=== PATIENT | male | born 1960 | race African-American/Black ===

== ENCOUNTER 2025-06-04 09:20 | Inpatient (IN) | payer OTHER ==
[~2025-06-04] VITALS: Ht 177.8 cm; Wt 112.2 kg
[~2025-06-04 09:20] MED LIST: ALPR0.255 PO; ATOR10TA52 PO; CITA10TA5 PO; EMPA1TAB3 PO; ERGO1CAP12 PO; FURO40TA4 PO; HYDR50TA47 PO; LOSA-535 PO; METO-289 PO; POTA-220 PO; SACU1TAB7 PO; SILD100T73 PO
--- NOTE | 2025-06-04 09:35 | ED.PDOC ---
History of Present Illness HPI Comments 65-year-old male with PMHx HTN, Asthma, CHF brought in by EMS presents with a chief complaint of sciatica pain x 3 weeks with associated hypertension. 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 Patient is also hypertensive at 190 systolic, but states that he just recently took his blood pressure medication. Chief Complaint: Lower Extremity Time Seen by MD: 09:25 Reviewed Notes: Medications, Allergies Allergies: Coded Allergies: NO KNOWN ALLERGIES (Unverified , 06/04/25) Information Source: Patient Mode of Arrival: Ambulatory Severity: Moderate Timing: Days Duration: Since onset Prehospital treatment: [facility] Past Medical History PAST MEDICAL HISTORY: Asthma, CHF, HTN Surgical History: Denies all surgeries Family History Family History: Reviewed,noncontributory to illness Social History Smoker: Non-Smoker Alcohol: Denies ETOH Use Drugs: Denies Drug Use Lives In: Home Constitutional: denies: chills, diaphoresis, fatigue, fever, malaise, sweats, weakness, others EENTM: denies: blurred vision, double vision, ear bleeding, ear discharge, ear drainage, ear pain, ear ringing, eye pain, eye redness, hearing loss, mouth pain, mouth swelling, nasal discharge, nose bleeding, nose congestion, nose pain, photophobia, tearing, throat pain, throat swelling, voice changes, others Respiratory: denies: cough, hemoptysis, orthopnea, SOB at rest, shortness of breath, SOB with excertion, stridor, wheezing, others Cardiovascular: denies: chest pain, dizzy spells, diaphoresis, Dyspnea on exertion, edema, irregular heart beat, left arm pain, lightheadedness, palpitations, PND, syncope, others Gastrointestinal: denies: abdomen distended, abdominal pain, blood streaked bowels, constipated, diarrhea, dysphagia, difficulty swallowing, hematemesis, melena, nausea, poor appetite, poor fluid intake, rectal bleeding, rectal pain, vomiting, others Genitourinary: denies: burning, dysuria, flank pain, frequency, hematuria, incontinence, penile discharge, penile sore, pain, testicle pain, testicle swelling, urgency, others Neurological: denies: dizziness, fainting, headache, left sided numbness, left sided weakness, numbness, paresthesia, pre-existing deficit, right sided numbn ess, right sided weakness, seizure, speech problems, tingling, tremors, weakness, others Musculoskeletal: reports: muscle pain; denies: back pain, gout, joint pain, joint swelling, muscle stiffness, neck pain, others Integumetry: denies: bruises, change in color, change in hair/nails, dryness, laceration, lesions, lumps, rash, wounds, others Allergic/Immunocompromised: denies: Difficulty Healing, Frequent Infections, Hives, Itching, others Hematologic/Lymphatic: denies: anemia, blood clots, easy bleeding, easy bruising, swollen glands, others Endocrine: denies: excessive hunger, excessive sweating, excessive thirst, excessive urination, flushing, intolerance to cold, intolerance to heat, unexplained weight gain, unexplained weight loss, others Psychiatric: denies: anxiety, bipolar disorder, depression, hopeless, panic disorder, schizophrenia, sleepless, suicidal, others All Other Systems: Reviewed and Negative Physical Exam General Appearance: Moderate Distress, Normal HEENT: Normal ENT Inspection, Pharynx Normal, TMs Normal Neck: Full Range of Motion, Non-Tender, Normal, Normal Inspection Respiratory: Chest Non-Tender, Lungs Clear, No Accessory Muscle Use, No Respiratory Distress, Normal Breath Sounds Cardiovascular: No Edema, No JVD, No Murmur, No Gallop, Normal Peripheral Pulses, Regular Rate/Rhythm Breast Exam: Deferred Gastrointestinal: No Organomegaly, Non Tender, No Pulsatile Mass, Normal Bowel Sounds, Soft Genitalia: Deferred Pelvic: Deferred Rectal: Deferred Extremities: No calf tenderness, Normal capillary refill, Normal inspection, Normal range of motion, Non-tender, No pedal edema Musculoskeletal : Apperance: Normal Neurologic: Alert, quality analyst II-XII nml as Tested, No Motor Deficits, Normal Affect, Normal Mood, No Sensory Deficits Cerebellar Function: NOT DONE Reflexes: NOT DONE Skin: Dry, Normal Color, Warm Peripheral Pulses: 3+ Radial (R), 3+ Radial (L) Lymphatic: No Adenopathy Was a procedure done? Was a procedure done?: No Differential Dx Considerations may include: Anemia Electrolyte imbalance X-Ray, Labs, Meds, VS Vital Signs Date Time Temp Pulse Resp B/P (MAP) Pulse Ox O2 Delivery O2 Flow Rate FiO2 9/21/25 09:57 87 18 95 Room Air 06/04/25 09:57 98.9 87 18 194/112 (139) 95 98.9 06/04/25 09:54 194/112 06/04/25 09:32 80 06/04/25 09:30 99.0 86 18 196/78 100 99.0 Current Medications Medications (Trade) Dose Ordered Sig/Alma Route Start Time Stop Time Status Last Admin Clonidine HCl (Catapres Tablet) 0.2 mg ONCE ONCE PO 06/04/25 09:30 06/04/25 09:32 DC 06/04/25 09:54 Patient complaining of leg pain. Blood pressure elevated. Was given clonidine. Answering questions. Moving all extremities. No leg swelling. Chest x-ray reviewed does show CHF. Was given Lasix. EKG reviewed does show T-wave inversions. Cardiology contacted. Explained to the patient. Continue monitoring. Time of 1ST Reevaluation: 10:34 Reevaluation 1ST: Unchanged Patient Education/Counseling: Diagnosis, Treatment, Need For Follow Up Family Education/Counseling: No Family Present SEPSIS Sepsis Screen Physician Orders Troponin-I Hs (06/04/25 09:30) Complete Blood Count (06/04/25 09:30) Chest Portable (06/04/25 09:30) Urinalysis (06/04/25 09:30) Basic Metabolic Panel (06/04/25 09:30) Vital Signs Date Time Temp Pulse Resp B/P (MAP) Pulse Ox O2 Delivery O2 Flow Rate FiO2 06/04/25 09:57 87 18 95 Room Air 06/04/25 09:57 98.9 87 18 194/112 (139) 95 98.9 06/04/25 09:54 194/112 06/04/25 09:32 80 06/04/25 09:30 99.0 86 18 196/78 100 99.0 Medications Medications Dose Ordered Sig/Alma Route Start Time Stop Time Status Last Admin Dose Admin Clonidine HCl 0.2 mg ONCE ONCE PO 06/04/25 09:30 06/04/25 09:32 DC 06/04/25 09:54 Departure 1 Departure Time of Disposition: 10:35 Impression: Primary Impression: CHF (congestive heart failure) Qualified Codes: I50.43 - Acute on chronic combined systolic (congestive) and diastolic (congestive) heart failure Disposition: 09 ADMITTED INPATIENT Admit to: Med Surg Condition: Guarded Critical Care Note Critical Care Time?: No Stability Stability form required: No Heart Score Heart Score: Heart Score Response (Comments) Value History Slightly Suspicious 0 EKG Normal 0 Age >65 2 Risk Factors >3 or Hx ASHD 2 Troponin Normal limit 0 Total 4 I personally scribed for MONIQUE HART MD ([email or web address]) on 06/04/25 at 09:35. Electronically submitted by Keith Simpson [email or web address]). MONIQUE HART MD Jun 04, 2025 09:35
--- NOTE | 2025-06-04 09:39 | ECG ---
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
--- NOTE | 2025-06-04 10:00 | DVH ---
INDICATION: sob TECHNIQUE: Frontal view of the chest. COMPARISON: None FINDINGS: Heart size is mildly enlarged. There also appears to be mild increased interstitial and alveolar mar kings bilaterally. IMPRESSION: 1. Mild cardiomegaly with mild pulmonary edema.
[2025-06-04] MEDS: ONDANSETRON HCL 4 MG/2 ML VIAL IV ONE (11:27)
[2025-06-04] MEDS: FUROSEMIDE 40 MG/4 ML VIAL IV ONE (11:27)
[2025-06-04] MEDS: MORPHINE SULFATE 4 MG/ML SYR/VIAL IV ONE (11:28)
[2025-06-04 12:07] LABS: Hemoglobin 18.1 g/dL (13.5-17.5); Mean Corpuscular Hemoglobin 27.2 pg (28.0-32.0)
[2025-06-04 12:09] LABS: Mean Corpuscular Volume 84.6 fL (80.0-100.0); Nucleated Red Blood Cells % 0.1 %
[2025-06-04 12:25] LABS: Chloride 105 mmol/L (98-107); Potassium 3.8 mmol/L (3.5-5.1); Sodium 140 mmol/L (136-145)
[2025-06-04 12:26] LABS: Anion Gap 11 (5-15); Calcium 9.6 mg/dL (8.7-10.4); Carbon Dioxide 24 mmol/L (20-31)
[2025-06-04] MEDS ORDERED: ACETAMINOPHEN 325 MG TAB PO PRN (12:30)
[2025-06-04] MEDS ORDERED: NITROGLYCERIN 0.4 MG SL TAB SL PRN (12:30)
[2025-06-04] MEDS ORDERED: HYDROcodone-ACET 5/325MG TAB PO PRN (12:30)
[2025-06-04 12:31] LABS: BUN/Creatinine Ratio 8.2 (10.0-20.0)
[2025-06-04 12:34] LABS: Blood Urea Nitrogen 7 mg/dL (9-23); Glucose 108 mg/dL (74-106)
[2025-06-04 12:36] LABS: Hematocrit 56.2 % (41.0-53.0)
[2025-06-04 13:08] LABS: INR 1.08 (0.9-1.15); Prothrombin Time 11.4 sec (9.3-11.8)
--- NOTE | 2025-06-04 14:02 | DVHHP2 ---
History of Present Illness Reason for Visit: Generalized weakness likely due to acute lumbar pain History of Present Illness This is a 65-year-old male with PMHx HTN, Asthma, CHF brought in by EMS presents with a chief complaint of sciatica pain x 3 weeks with associated numbness and tingling down his left leg. 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 The patient states that prior to this incident he was ambulatory, currently he is in severe pain after standing for no more than 10 minutes. The patient reports that his symptoms progressively got worse since Thursday. It was also noted that his blood pressure was found to be elevated at 194/112 despite taking his antihypertensive medications. Upon evaluation the patient was found to be alert oriented x4 denied pain to his chest but lower back pain rated it 8/10 on pain scale one through 10. He is concerned about his symptoms and would like to be further evaluated and treated. The patient will be admitted under hospitalist care to the telemetry unit for continuous monitoring. The patient denies fever, chills, headache, dizziness, palpitations, shortness of breath, chest pain, nausea, vomiting, abdominal pain, diarrhea, constipation and other associated symptoms. The plan has been discussed with the patient and spouse in which all questions concerns have been addressed. Cardiovascular: CHF, HTN Pulmonary: Asthma Past Surgical History: None Family History: None Smoke: No ALCOHOL: none Drugs: None Lives: with Family Domestic Violence: Neg Review of Systems Musculoskeletal: other (Numbness and tingling down left leg), back pain, leg pain Allergies: Coded Allergies: NO KNOWN ALLERGIES (Unverified , 06/04/25) Medications Current Medications Medications Dose Ordered Sig/Alma Route Start Time Stop Time Status Last Admin Dose Admin Acetaminophen/ Hydrocodone Bitart 1 tab Q4HP PRN PO 06/04/25 12:30 Ondansetron HCl 4 mg Q4HP PRN IV 06/04/25 12:30 Enoxaparin Sodium 40 mg DAILY SC 06/05/25 10:00 Acetaminophen 650 mg Q6HP PRN PO 06/04/25 12:30 Morphine Sulfate 2 mg Q4HPRN PRN IV 06/04/25 12:30 Nitroglycerin 0.4 mg Q5MINP PRN SL 06/04/25 12:30 Morphine Sulfate 2 mg Q30M PRN IV 06/04/25 12:30 Hydralazine HCl 10 mg Q6HP PRN IV 06/04/25 12:30 Exam Vital Signs Vital Signs Date Time Temp Pulse Resp B/P (MAP) Pulse Ox O2 Delivery O2 Flow Rate FiO2 06/04/25 11:28 87 17 180/116 06/04/25 11:04 98.7 97 98.7 06/04/25 09:57 Room Air General Appearance: Alert, Oriented X3, Cooperative, No acute distress HEENT: Atraumatic, PERRLA, Mucous membr. moist/pink Respiratory: Clear to auscultation, Normal air movement Cardiovascular: Normal S1, Normal S2, No murmurs Abdominal: Normal bowel sounds, Soft, No tenderness, No hepatospenomegaly, No masses Extremities: No clubbing, No cyanosis, No edema, Normal pulses, No tenderness/swelling Skin: No rashes, No breakdown Neuro: Normal speech, Normal tone, Cranial nerves 3-12 NL Psych/Mental Status: Mental status NL, Mood NL Labs/Xrays Labs Test 06/04/25 11:48 06/04/25 11:44 06/04/25 09:30 Range/Units White Blood Count 7.5 4.4-10.8 10^3/uL Red Blood Count 6.65 H 4.5-5.90 10^6/uL Hemoglobin 18.1 H 13.5-17.5 g/dL Hematocrit 56.2 H 41.0-53.0 % Mean Corpuscular Volume 84.6 80.0-100.0 fL Mean Corpuscular Hemoglobin 27.2 L 28.0-32.0 pg Mean Corpuscular Hemoglobin Concent 32.2 32.0-36.0 g/dL Red Cell Distribution Width 16.8 H 11.8-14.3 % Platelet Count 335 140-450 10^3/uL Mean Platelet Volume 8.1 6.9-10.8 fL Neutrophils (%) (Auto) 72.7 37.0-80.0 % Lymphocytes (%) (Auto) 19.2 10.0-50.0 % Monocytes (%) (Auto) 6.9 0.0-12.0 % Eosinophils (%) (Auto) 0.6 0.0-7.0 % Basophils (%) (Auto) 0.6 0.0-2.0 % Neutrophils # (Auto) 5.5 1.6-8.6 10 ^3/uL Lymphocytes # (Auto) 1.4 0.4-5.4 10 ^3/uL Monocytes # (Auto) 0.5 0-1.3 10 ^3/uL Eosinophils # (Auto) 0 0-0.8 10 ^3/uL Basophils # (Auto) 0 0-0.2 10 ^3/uL Nucleated Red Blood Cells 0.1 % Sodium Level 140 136-145 mmol/L Potassium Level 3.8 3.5-5.1 mmol/L Chloride Level 105 98-107 mmol/L Carbon Dioxide Level 24 20-31 mmol/L Anion Gap 11 5-15 Blood Urea Nitrogen 7 L 9-23 mg/dL Creatinine 0.85 0.700-1.30 mg/dL Glomerular Filtration Rate Calc 96 >90 mL/min BUN/Creatinine Ratio 8.2 L 10.0-20.0 Serum Glucose 108 H 74-106 mg/dL Calcium Level 9.6 8.7-10.4 mg/dL Troponin I High Sensitivity 106 *H </=54 ng/L Prothrombin Time 11.4 9.3-11.8 sec Prothrombin Time INR 1.08 0.9-1.15 ORDERING PHYSICIAN: MONIQUE HART MD PROCEDURE(s): CXRP - CHEST PORTABLE REASON: sob ORDER NUMBER(s): [id number], ACCESSION NUMBER(s): [id number] INDICATION: sob TECHNIQUE: Frontal view of the chest. COMPARISON: None FINDINGS: Heart size is mildly enlarged. There also appears to be mild increased interstitial and alveolar markings bilaterally. IMPRESSION: 1. Mild cardiomegaly with mild pulmonary edema. ATED BY: BETTIE PEREZ MD DICTATED DATE/TIME: 06/04/25956 SIGNED BY: BETTIE PEREZ MD SIGNED DATE/TIME: 06/04/25956 ORDERING PHYSICIAN: BRIAN DUGGAN OCCUPATIONAL THERAPY INSTRUCTOR PROCEDURE(s): LS2CT - LS SPINE WO CONTRAST REASON: sciatica pain ORDER NUMBER(s): [id number], ACCESSION NUMBER(s): [id number] EXAM: CT LS SPINE WO CONTRAST INDICATION: sciatica pain COMPARISON: None TECHNIQUE: Multiple axial CT images of the lumbar spine were obtained using bone algorithm. Axial and coronal reformatting was done. Bone and soft tissue windows were reviewed. Radiation Dose Information: CT Dose: CTDI volume is 24.8 mGy. Dose-length product is 1044.69 mGy*cm FINDINGS: No CT evidence of acute fracture or traumatic mal-alignment. The visualized paraspinal soft tissues are grossly unremarkable. L1-2: The disc at this level appears normal. L2-3: There is a mild central disc bulge present at this level along with hypertrophy ligamentum flavum is causing [id number]-[id number] central canal stenosis. This is also causing nwbt-pk-qkvcrxla encroachment upon the exiting nerve roots bilaterally. L3-4 there is a mild central disc bulge at this level, this along with hypertrophied ligamentum flavum is causing moderate to high-grade central canal stenosis as well as encroachment upon the exiting nerves bilaterally. L4-5: There there appears to be a moderate left paracentral disc protrusion present at this level which is causing significant encroachment upon the exiting left nerve roots. There is moderate hypertrophied ligamentum flavum which is causing atzp-gy-upgsszao central canal stenosis. L5-S1: Mild to moderate central disc bulge is present at this level which is causing nbyh-zw-lcitsnwz central canal stenosis. IMPRESSION: 1. No CT evidence of acute fracture or traumatic mal-alignment of the bony lumbar spine. 2. Multilevel degenerative changes as described above. 3. Moderate left paracentral disc protrusion at L4-5 causing significant encroachment upon the exiting left nerve roots. ATED BY: BETTIE PEREZ MD DICTATED DATE/TIME: 06/04/251415 SIGNED BY: BETTIE PEREZ MD SIGNED DATE/TIME: 06/04/251415 CC: SEPSIS Sepsis Screen Date sepsis recognized/suspect: Jun 04, 2025 Time Sepsis recognized/suspect: 923 Recent Procedure: No On Antibiotic Therapy: No Respiratory Rate >20: No Heart Rate >90: No Temp<36 C (96.8 F) or >38.3 C: No SBP <90 or MAP <65 mmHG: No New Acute Mental Status Change: No Is the patient on CPAP, BIPAP,: No Physician Orders Chest Portable (06/04/25 09:30) Urinalysis (06/04/25 09:30) Admit (06/04/25 12:24) 2 Gm Sodium Diet (06/04/25 Lunch) Hydrocodone-Acet 5/325mg Tab ([place] 5/32 (06/04/25 12:30) Ondansetron Hcl (Zofran) (06/04/25 12:30) Enoxaparin Sodium (Lovenox) (06/05/25 10:00) Comprehensive Metabolic Panel (06/05/25 04:00) Echo 2d Mode Cardiac Dop (06/04/25 12:24) Condition: Fair (06/04/25 12:24) Acetaminophen Tablet (Tylenol Tablet) (06/04/25 12:30) Bedrest With Bathroom Privileg (06/04/25 12:24) Morphine Sulfate Injection (06/04/25 12:30) Nitroglycerin Sublingual (Ntrostat Subli (06/04/25 12:30) Morphine Sulfate Injection (06/04/25 12:30) Stat Ekg For Chest Pain (06/04/25 12:24) Notify Md Of Changes From Base (06/04/25 12:24) Weight Loss Sales Consultant For 24 Hours (06/04/25 12:24) Emergency Dysrhythmia Protocol (06/04/25 12:24) Rhythm Strips Once Every Shift (06/04/25 12:24) Oxygen By Nasal Cannula (06/04/25 12:24) Hydralazine Injection (Apresoline Inject (06/04/25 12:30) Ls Spine Wo Contrast (06/04/25 13:06) Vital Signs Date Time Temp Pulse Resp B/P (MAP) Pulse Ox O2 Delivery O2 Flow Rate FiO2 06/04/25 11:28 87 17 180/116 06/04/25 11:27 180/116 06/04/25 11:23 184/116 06/04/25 11:04 98.7 87 17 180/116 (137) 97 98.7 06/04/25 09:57 87 18 95 Room Air 06/04/25 09:57 98.9 87 18 194/112 (139) 95 98.9 06/04/25 09:54 194/112 06/04/25 09:32 80 06/04/25 09:30 99.0 86 18 196/78 100 99.0 Laboratory Tests Test 06/04/25 11:48 White Blood Count 7.5 10^3/uL (4.4-10.8) Medications Medications Dose Ordered Sig/Alma Route Start Time Stop Time Status Last Admin Dose Admin Clonidine HCl 0.2 mg ONCE ONCE PO 06/04/25 09:30 06/04/25 09:32 DC 06/04/25 09:54 0.2 MG Furosemide 40 mg ONCE ONCE IV 06/04/25 10:45 06/04/25 10:46 DC 06/04/25 11:27 40 MG Morphine Sulfate 4 mg ONCE ONCE IV 06/04/25 11:15 06/04/25 11:16 DC 06/04/25 11:28 4 MG Ondansetron HCl 4 mg ONCE ONCE IV 06/04/25 11:15 06/04/25 11:16 DC 06/04/25 11:27 4 MG Assessment/Plan Assessment/Plan Generalized weakness likely due to acute lumbar pain---patient presents to ED via EMS with progressive sciatica pain associated with numbness and tingling to his left leg since Thursday The patient had 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 when symptoms 1st started Patient was fully ambulatory prior to accident currently can not stand for more than 10 minutes, in a wheelchair No prior history of back issues History of asthma, CHF and hypertension-compliant on medications The patient was given 4 mg IV morphine sulfate for pain Admit to telemetry unit for continuous monitoring--due to elevated BP ACS protocol if needed Reviewed CBC shows elevated hemoglobin 18.1 Reviewed BMP which is normal Troponin level 106--patient denies chest pain or shortness of breath Reviewed chest x-ray shows mild cardiomegaly with edema PT/INR pending Type and screen Ordered CT lumbar spine with and without contrast---Moderate left paracentral disc protrusion at L4-5 causing significant encroachment upon the exiting left nerve roots. Consult spine surgeon Dr. Patterson for evaluation and recommendation PT eval [place] for pain as needed IV Toradol now for pain CHF BNP pending Echocardiogram pending Continue medications Hypertension-uncontrolled Hydralazine 10 mg IV push q.6 p.r.n. SBP greater than 160 mmHg Continue antihypertensive agent Continue to monitor Reconcile home medications Labs in a.m. DVT prophylaxis SCD PUD prophylaxis not indicated no history of GERD Discussed plan of care with the patient and spouse in which all questions concerns have been addressed Plan discussed with: Patient, Spouse My Orders Orders - BRIAN DUGGAN Procedure Category Date Status Time Admit ADMIT 06/04/25 Transmitted 12:24 2 Gm Sodium Diet DIET 06/04/25 Transmitted Lunch Hydrocodone-Acet PHA 06/04/25 In Process 5/325mg Tab ([place] 12:30 Ondansetron Hcl PHA 06/04/25 In Process (Zofran) 12:30 Enoxaparin Sodium PHA 06/05/25 In Process (Lovenox) 10:00 Comprehensive LAB 06/05/25 Verified Metabolic Panel 04:00 Echo 2d Mode Cardiac US 06/04/25 Logged DOP 12:24 Condition: Fair [place] 06/04/25 In Process 12:24 Acetaminophen Tablet PHA 06/04/25 In Process (Tylenol Tablet) 12:30 Bedrest With Bathroom [place] 06/04/25 In Process Privileg 12:24 Morphine Sulfate PHA 06/04/25 In Process Injection 12:30 Nitroglycerin PHA 06/04/25 In Process Sublingual (Ntrostat 12:30 Morphine Sulfate PHA 06/04/25 In Process Injection 12:30 Stat Ekg For Chest [place] 06/04/25 In Process Pain 12:24 Notify Md Of Changes [place] 06/04/25 In Process From Base 12:24 Weight Loss Sales Consultant For [place] 06/04/25 In Process 24 Hours 12:24 Emergency Dysrhythmia [place] 06/04/25 In Process Protocol 12:24 Rhythm Strips Once [place] 06/04/25 In Process Every Shift 12:24 Oxygen By Nasal RT 06/04/25 Transmitted Cannula 12:24 Hydralazine Injection PHA 06/04/25 In Process (Apresoline Inject 12:30 Ls Spine Wo Contrast CT 06/04/25 Taken 13:06 Date of Service: Jun 04, 2025 Billing Provider: BRIAN DUGGAN Common Visit Codes: [id number] INP/OBS CARE (HIGH) BRIAN DUGGAN Jun 04, 2025 14:02
--- NOTE | 2025-06-04 14:18 | DVH ---
EXAM: CT LS SPINE WO CONTRAST INDICATION: sciatica pain COMPARISON: None TECHNIQUE: Multiple axial CT images of the lumbar spine were obtained using bone algorithm. Axial an d coronal reformatting was done. Bone and soft tissue windows were reviewed. Radiation Dose Information: CT Dose: CTDI volume is 24.8 mGy. Dose-length product is 1044.69 mGy*cm FINDINGS: No CT evidence of acute fracture or traumatic mal-alignment. The visualized paraspinal soft tissues a re grossly unremarkable. L1-2: The disc at this level appears normal. L2-3: There is a mild central disc bulge present at this level along with hypertrophy ligamentum flav um is causing iwth-cn-nsxjfzqi central canal stenosis. This is also causing vfvd-gd-nzmzokyy encroach ment upon the exiting nerve roots bilaterally. L3-4 there is a mild central disc bulge at this level, this along with hypertrophied ligamentum flavu m is causing moderate to high-grade central canal stenosis as well as encroachment upon the exiting n erves bilaterally. L4-5: There there appears to be a moderate left paracentral disc protrusion present at this level whi ch is causing significant encroachment upon the exiting left nerve roots. There is moderate hypertrop hied ligamentum flavum which is causing nolh-xl-wdfctqhd central canal stenosis. L5-S1: Mild to moderate central disc bulge is present at this level which is causing ivzz-cs-nsqmhjug central canal stenosis. IMPRESSION: 1. No CT evidence of acute fracture or traumatic mal-alignment of the bony lumbar spine. 2. Multilevel degenerative changes as described above. 3. Moderate left paracentral disc protrusion at L4-5 causing significant encroachment upon the exitin g left nerve roots.
[2025-06-04] MEDS: KETOROLAC TROMETH 30 MG/ML 1ML VIAL IV ONE (14:22)
[2025-06-04 14:25] LABS: Urine Protein, UAD Negative (Negative)
[2025-06-04 17:10] VITALS: PULSE 88; RESP 19; O2SAT 94
[2025-06-04 19:25] VITALS: O2SAT 88
[2025-06-04] MEDS: hydrALAZINE HCL 20 MG/ML VL IV PRN (20:05)
[2025-06-04] MEDS: CYCLOBENZAPRINE HCL 10 MG TAB PO SCH (22:29)
[2025-06-04] MEDS: MORPHINE SULFATE INJ 2 MG/ml SYRG IV PRN (23:36)
[2025-06-04] MEDS: ONDANSETRON HCL 4 MG/2 ML VIAL IV PRN (23:36)
[2025-06-05] VITALS (9 sets, daily range): BP systolic 142–158; BP diastolic 77–90; PULSE 82–95; RESP 18–20; TEMP 98.2; O2SAT 93–100
[2025-06-05 06:36] LABS: Alanine Aminotransferase 32 U/L (7-40); Albumin 4.0 g/dL (3.2-4.8); Alkaline Phosphatase 61 U/L (46-116); Anion Gap 9 (5-15); BUN/Creatinine Ratio 11.2 (10.0-20.0); Blood Urea Nitrogen 10 mg/dL (9-23); Calcium 9.3 mg/dL (8.7-10.4); Carbon Dioxide 29 mmol/L (20-31); Chloride 104 mmol/L (98-107); Glucose 88 mg/dL (74-106); Potassium 3.9 mmol/L (3.5-5.1); Sodium 142 mmol/L (136-145); Total Protein 7.1 g/dL (5.7-8.2)
[2025-06-05 06:43] LABS: Bilirubin, Total 1.3 mg/dL (0.2-1.0)
[2025-06-05] MEDS: ENOXAPARIN SOD 40 MG/0.4 ML SYRINGE SC SCH (10:41)
--- NOTE | 2025-06-05 11:55 | DVH ---
PROCEDURE: MRI LUMBAR SPINE WO CONTRAST Indication: lumbar pain COMPARISON: None TECHNIQUE: Multiplanar multisequence images of the the lumbar spine are obtained. FINDINGS: For the purpose of this examination, there are 5 lumbar vertebral body types counting from the lumbos acral junction. The lumbar vertebral body heights are maintained. Moderate multilevel disc space narrowing and desicc ation. 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 The conus terminates at the level of the L1 vertebral body level. There is an L4 vertebral body T2 bright, T1 dark lesion measuring 12 mm. T12-L1: No spinal canal, neural foraminal stenosis. Mild bilateral neural foraminal stenosis. L1-2: No disc protrusion. Mild facet and flavum hypertrophy. No spinal canal stenosis. No neural f oraminal stenosis. L2-3: Tiny disc protrusion. Mild facet and flavum hypertrophy. Thecal sac measures 13 mm AP. No spi nal canal stenosis. Mild bilateral neural foraminal stenosis. L3-4: Small 2 mm disc protrusion. Mild facet and flavum hypertrophy. Thecal sac measures 9 mm AP. Mild spinal canal stenosis moderate neural foraminal stenosis. L4-5: 4 mm disc protrusion. Moderate facet and flavum hypertrophy. Thecal sac measures 6 mm AP. Mo derate spinal canal stenosis. Moderate to severe left and moderate right neural foraminal stenosis. L5-S1: 4 mm disc protrusion. Rwni-qu-zrcakldl facet and flavum hypertrophy. Thecal sac measures 11 m m AP. No spinal canal stenosis. Severe left and moderate to severe right neural foraminal stenosis. IMPRESSION: Moderate lumbar degenerative disc disease. 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 Moderate spinal canal stenosis L4-5. Mild spinal canal stenosis L3-4. Multilevel neural foraminal stenosis most pronounced at L4-5 and L5-S1. T2 bright, T1 dark lesion at the L4 vertebral body measuring 12 mm. Differential considerations incl ude atypical hemangioma, metastases, myeloma. Recommend MRI lumbar spine with contrast. Recommend c ontinued imaging surveillance. Correlate with risk factors/clinical history.
--- NOTE | 2025-06-05 13:22 | DVHPN2 ---
Reviewed: H&P Changes from previous H/P or p: No Changes General: Per HPI Musculoskeletal: other (Numbness and tingling down left leg), back pain, leg pain Objective Vitals Vital Signs Date Time Temp Pulse Resp B/P (MAP) Pulse Ox O2 Delivery O2 Flow Rate FiO2 06/05/25 10:00 80 14 168/88 (114) 95 06/05/25 07:15 Room Air* 0 21 06/05/25 07:15 97.9 97.9 Exam General Appearance: Alert, Oriented X3, Cooperative, No acute distress HEENT: Atraumatic, PERRLA, Mucous membr. moist/pink Respiratory: Clear to auscultation, Normal air movement Cardiovascular: Normal S1, Normal S2, No murmurs Abdominal: Normal bowel sounds, Soft, No tenderness, No hepatospenomegaly, No masses Extremities: No clubbing, No cyanosis, No edema, Normal pulses, No tenderness/swelling Skin: No rashes, No breakdown Neuro: Normal speech, Normal tone, Cranial nerves 3-12 NL Psych/Mental Status: Mental status NL, Mood NL Medications Current Medications Medications Dose Ordered Sig/Alma Route Start Time Stop Time Status Last Admin Dose Admin Acetaminophen/ Hydrocodone Bitart 1 tab Q4HP PRN PO 06/04/25 12:30 Ondansetron HCl 4 mg Q4HP PRN IV 06/04/25 12:30 06/04/25 23:36 4 MG Enoxaparin Sodium 40 mg DAILY SC 06/05/25 10:00 06/05/25 10:41 40 MG Acetaminophen 650 mg Q6HP PRN PO 06/04/25 12:30 Morphine Sulfate 2 mg Q4HPRN PRN IV 06/04/25 12:30 Nitroglycerin 0.4 mg Q5MINP PRN SL 06/04/25 12:30 Morphine Sulfate 2 mg Q30M PRN IV 06/04/25 12:30 06/04/25 23:36 2 MG Hydralazine HCl 10 mg Q6HP PRN IV 06/05/25 12:15 Methylprednisolone Sodium Succinate 40 mg DAILY IV 06/05/25 12:15 Baclofen 10 mg BID PO 06/05/25 12:15 Laboratory Results Laboratory Tests 06/04/25 11:48 06/05/25 05:50 Chemistry Test 06/05/25 05:50 Albumin 4.0 g/dL (3.2-4.8) Calcium Level 9.3 mg/dL (8.7-10.4) Total Protein 7.1 g/dL (5.7-8.2) LFT Test 06/05/25 05:50 Alanine Aminotransferase (ALT) 32 U/L (7-40) Alkaline Phosphatase 61 U/L (46-116) Aspartate Amino Transferase (AST) 43 U/L (13-40) H Total Bilirubin 1.3 mg/dL (0.2-1.0) H Urinalysis Test 06/04/25 09:30 Urine Color Light-yellow (Yellow) Urine Clarity Clear (Clear) Urine pH 6.5 (5.0-9.0) Urine Specific [place] 1.017 (1.001-1.035) Urine Protein Negative (Negative) Urine Ketones Negative (Negative) Urine Blood Negative /uL (Negative) Urine Nitrite Negative (Negative) Urine Bilirubin Negative (Negative) Urine Urobilinogen Normal mg/dL (Negative) Urine Leukocyte Esterase Negative /uL (Negative) Urine RBC 1 /hpf (0 - 3) Urine Microscopic WBC /HPF (0-3) Urine Squamous Epithelial Cells None seen /hpf (<5) Urine Bacteria None seen /hpf (None Seen) Urine Glucose 4+ mg/dL (Normal) H Labs and/or images reviewed: Labs reviewed by me, Image(s) reviewed by me Assessment/Plan Assessment/Plan 65-year-old male with PMHx HTN, Asthma, CHF brought in by EMS presents with a chief complaint of sciatica pain x 3 weeks with associated numbness and tingling down his left leg. 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 The patient states that prior to this incident he was ambulatory, currently he is in severe pain after standing for no more than 10 minutes. The patient reports that his symptoms progressively got worse since Thursday. It was also noted that his blood pressure was found to be elevated at 194/112 despite taking his antihypertensive medications. 06/05: Patient is today, continues having back pain. Straight leg raise negative, but has significant pain on changing angle of head of bed. Patient also has CPAP/BiPAP at home we will continue with the stay. We will also continue his CHF medications. Patient is unable to lie down flat because of CHF. We started Solu-Medrol 40 b.i.d. and baclofen 10 t.i.d.. Waiting for spinal team eval as consult placed team. dx: acute sciatica, with lower extremity neuropathy and falls acute lumbar pain due to above intractable back pain due to above chronic CHF, not in exacerbation Asthma HTN plan: antispamsmodics (baclofen over flexiril) pain prn analgesics, iv formulations for severe steroids iv - decadron (prior solumedrol) continue other home medications spinal consult tele full code Plan discussed with: Patient My Orders Orders - CHEVY JACOBSON MD Procedure Category Date Status Time Hydralazine Injection PHA 06/05/25 In Process (Apresoline Inject 12:15 Methylprednisolone PHA 06/05/25 In Process Sod Succ (Solu Medrol 12:15 Baclofen Tablet PHA 06/05/25 In Process (Liorisal Tablet) 12:15 Date of Service: Jun 05, 2025 Billing Provider: CHEVY JACOBSON MD Common Visit Codes: [id number] INP/OBS CARE(HIGH) CHEVY JACOBSON MD Jun 05, 2025 13:22
[2025-06-05] MEDS: methylPREDNISolone SOD SUCC 40 MG/ML VL IV SCH (13:28)
[2025-06-05] MEDS: BACLOFEN 10 MG TAB PO SCH (13:28)
--- NOTE | 2025-06-05 15:12 | DVHINCON2 ---
Consultation - Surgical Date Seen: Jun 05, 2025 Referring Physician Referring Physician Attending Doctor: Ginna Burton MD Reason for Consultation Reason for Visit: Generalized weakness likely due to acute lumbar pain History of Present Illness History of Present Illness History of Present Illness This is a 65-year-old male with PMHx HTN, Asthma, CHF brought in by EMS presents with a chief complaint of sciatica pain x 3 weeks with associated numbness and tingling down his left leg. 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 The patient states that prior to this incident he was ambulatory, currently he is in severe pain after standing for no more than 10 minutes. The patient reports that his symptoms progressively got worse since Thursday. It was also noted that his blood pressure was found to be elevated at 194/112 despite taking his antihypertensive medications. Upon evaluation the patient was found to be alert oriented x4 denied pain to his chest but lower ba ck pain rated it 8/10 on pain scale one through 10. He is concerned about his symptoms and would like to be further evaluated and treated. The patient will be admitted under hospitalist care to the telemetry unit for continuous monitoring. The patient denies fever, chills, headache, dizziness, palpitations, shortness of breath, chest pain, nausea, vomiting, abdominal pain, diarrhea, constipation and other associated symptoms. The plan has been discussed with the patient and spouse in which all questions concerns have been addressed. Past Medical/Surgical History Past Medical/Surgical History Cardiovascular: CHF, HTN Pulmonary: Asthma Past Surgical History: None Family and Social History Family and Social History Family History: None Smoke: No ALCOHOL: none Drugs: None Lives: with Family Domestic Violence: Neg Allergies and medications Allergies: Coded Allergies: NO KNOWN ALLERGIES (Unverified , 06/04/25) Home Meds Reported Medications Sacubitril-Valsartan (Entresto 49-51 mg) 1 Tab Tab, 1 TAB PO BID for 90 Days, #180 06/05/25 Ergocalciferol (Vitamin D) 50,000 Unit Cap, 1 CAP PO QWEEKLY for 84 Days, #12 06/05/25 Sildenafil Citrate (Sildenafil Citrate) 100 Mg Tab, 1 TAB PO PRN for 30 Days, # 30 06/05/25 Atorvastatin Calcium (ATORVASTATIN CALCIUM) 10 Mg Tab, 1 TAB PO DAILY for 30 Days, #30 06/05/25 Hydralazine Hcl (Hydralazine Hcl) 50 Mg Tab, 1 TAB PO BID for 30 Days, #60 06/05/25 Losartan Potassium (Losartan Potassium) 100 Mg Tab, 1 TAB PO DAILY for 30 Days, #30 06/05/25 Empagliflozin (Jardiance) 25 Mg Tab, 1 TAB PO QAM for 90 Days, #90 06/05/25 Potassium Chloride (Klor-Con M20) 20 Meq Tab, 1 TAB PO DAILY for 90 Days, #90 06/05/25 Citalopram Hydrobromide (Citalopram Hydrobromide) 10 Mg Tab, 1 TAB PO DAILY for 90 Days, #06/05/25 Alprazolam (Alprazolam) 0.25 Mg Tab, 1 TAB PO BID PRN for 30 Days, #60 06/05/25 Furosemide (Furosemide) 40 Mg Tab, 1 TAB PO DAILY for 90 Days, #06/05/25 Metoprolol Succinate (Metoprolol Succinate Er) 50 Mg Tab, 1 TAB PO DAILY for 90 Days, #90 06/05/25 Review of systems Review of Systems: MSK:Normal (sciatica pain x 3 weeks with associated numbness and tingling down his left leg, patient did trip on some wire just prior to the pain developing. 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 FINDINGS: For the purpose of this examination, there are 5 lumbar vertebral body types counting from the lumbosacral junction. The lumbar vertebral body heights are maintained. Moderate multilevel disc space narrowing and desiccation. 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 The conus terminates at the level of the L1 vertebral body level. There is an L4 vertebral body T2 bright, T1 dark lesion measuring 12 mm. T12-L1: No spinal canal, neural foraminal stenosis. Mild bilateral neural foraminal stenosis. L1-2: No disc protrusion. Mild facet and flavum hypertrophy. No spinal canal stenosis. No neural foraminal stenosis. L2-3: Tiny disc protrusion. Mild facet and flavum hypertrophy. Thecal sac measures 13 mm AP. No spinal canal stenosis. Mild bilateral neural foraminal stenosis. L3-4: Small 2 mm disc protrusion. Mild facet and flavum hypertrophy. Thecal sac measures 9 mm AP. Mild spinal canal stenosis moderate neural foraminal stenosis. L4-5: 4 mm disc protrusion. Moderate facet and flavum hypertrophy. Thecal sac measures 6 mm AP. Moderate spinal canal stenosis. Moderate to severe left and moderate right neural foraminal stenosis. L5-S1: 4 mm disc protrusion. [id number] facet and flavum hypertrophy. Thecal sac measures 11 mm AP. No spinal canal stenosis. Severe left and moderate to severe right neural foraminal stenosis. IMPRESSION: Moderate lumbar degenerative disc disease. 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 Moderate spinal canal stenosis L4-5. Mild spinal canal stenosis L3-4. Multilevel neural foraminal stenosis most pronounced at L4-5 and L5-S1. T2 bright, T1 dark lesion at the L4 vertebral body measuring 12 mm. Differential considerations include atypical hemangioma, metastases, myeloma. Recommend MRI lumbar spine with contrast. Recommend continued imaging surveillance. Correlate with risk factors/clinical history. Vital Signs Date Time Temp Pulse Resp B/P (MAP) Pulse Ox O2 Delivery O2 Flow Rate FiO2 06/05/25 14:00 86 13 140/78 (98) 91 06/05/25 07:15 Room Air* 0 21 06/05/25 07:15 97.9 97.9 Medications Current Medications Medications (Trade) Dose Ordered Sig/Alma Route PRN Reason Start Time Stop Time Status Last Admin Enoxaparin Sodium (Lovenox) 40 mg DAILY SC 06/05/25 10:00 06/05/25 10:41 Cyclobenzaprine HCl (Flexeril Tablet) 10 mg TID PO 06/04/25 22:00 06/05/25 12:03 DC 06/05/25 07:32 Hydralazine HCl (Apresoline Injection) 10 mg Q6HP PRN IV SBP>170 06/05/25 12:15 Methylprednisolone Sodium Succinate (Solu Medrol) 40 mg DAILY IV 06/05/25 12:15 06/05/25 13:28 Baclofen (Liorisal Tablet) 10 mg BID PO 06/05/25 12:15 06/05/25 13:28 Laboratory Labs Test 06/05/25 05:50 06/04/25 21:35 06/04/25 11:48 06/04/25 11:44 Range/Units Sodium Level 142 136-145 mmol/L Potassium Level 3.9 3.5-5.1 mmol/L Chloride Level 104 98-107 mmol/L Carbon Dioxide Level 29 20-31 mmol/L Anion Gap 9 5-15 Blood Urea Nitrogen 10 9-23 mg/dL Creatinine 0.89 0.700-1.30 mg/dL Glomerular Filtration Rate Calc 95 >90 mL/min BUN/Creatinine Ratio 11.2 10.0-20.0 Serum Glucose 88 74-106 mg/dL Calcium Level 9.3 8.7-10.4 mg/dL Total Bilirubin 1.3 H 0.2-1.0 mg/dL Aspartate Amino Transferase (AST) 43 H 13-40 U/L Alanine Aminotransferase (ALT) 32 7-40 U/L Alkaline Phosphatase 61 46-116 U/L Total Protein 7.1 5.7-8.2 g/dL Albumin 4.0 3.2-4.8 g/dL Troponin I High Sensitivity 84 *H </=54 ng/L White Blood Count 7.5 4.4-10.8 10^3/uL Red Blood Count 6.65 H 4.5-5.90 10^6/uL Hemoglobin 18.1 H 13.5-17.5 g/dL Hematocrit 56.2 H 41.0-53.0 % Mean Corpuscular Volume 84.6 80.0-100.0 fL Mean Corpuscular Hemoglobin 27.2 L 28.0-32.0 pg Mean Corpuscular Hemoglobin Concent 32.2 32.0-36.0 g/dL Red Cell Distribution Width 16.8 H 11.8-14.3 % Platelet Count 335 140-450 10^3/uL Mean Platelet Volume 8.1 6.9-10.8 fL Neutrophils (%) (Auto) 72.7 37.0-80.0 % Lymphocytes (%) (Auto) 19.2 10.0-50.0 % Monocytes (%) (Auto) 6.9 0.0-12.0 % Eosinophils (%) (Auto) 0.6 0.0-7.0 % Basophils (%) (Auto) 0.6 0.0-2.0 % Neutrophils # (Auto) 5.5 1.6-8.6 10 ^3/uL Lymphocytes # (Auto) 1.4 0.4-5.4 10 ^3/uL Monocytes # (Auto) 0.5 0-1.3 10 ^3/uL Eosinophils # (Auto) 0 0-0.8 10 ^3/uL Basophils # (Auto) 0 0-0.2 10 ^3/uL Nucleated Red Blood Cells 0.1 % Prothrombin Time 11.4 9.3-11.8 sec Prothrombin Time INR 1.08 0.9-1.15 Test 06/04/25 09:30 Range/Units Urine Color Light-yellow Yellow Urine Clarity Clear Clear Urine pH 6.5 5.0-9.0 Urine Specific [place] 1.017 1.001-1.035 Urine Protein Negative Negative Urine Ketones Negative Negative Urine Blood Negative Negative /uL Urine Nitrite Negative Negative Urine Bilirubin Negative Negative Urine Urobilinogen Normal Negative mg/dL Urine Leukocyte Esterase Negative Negative /uL Urine RBC 1 0 - 3 /hpf Urine Microscopic WBC 0-3 /HPF Urine Squamous Epithelial Cells None seen <5 /hpf Urine Bacteria None seen None Seen /hpf Urine Glucose 4+ H Normal mg/dL Examination: MSK:Normal (5 OF OUT OF 5 TO BILATERAL LOWER EXTREMITIES), SKIN:Normal, NEURO:Abnormal (NUMBNESS AND SHOOTING PAIN TO THE LEFT LEG), :Normal Problem List/Assessment/Plan Problems: (1) Lumbar stenosis with neurogenic claudication (2) Spondyloarthropathy of lumbar spine Assessment and Plan Moderate lumbar degenerative disc disease. congenitally narrow spinal canal at approximately L3 through L5. Moderate spinal canal stenosis L4-5. Mild spinal canal stenosis L3-4. Multilevel neural foraminal stenosis most pronounced at L4-5 and L5-S1. Continue care and support per admitting team's discretion Physical therapy evaluation, treatment recommendations and safe discharge planning recommendations Effective pain management including muscle relaxers if the patient is complaining of muscle spasms Discussed treatment options with the patient, patient is agreeable to the [facility] wing: If we can get the patient's pain under control with muscle relaxers and a dose of Decadron 10 mg IV x1 to help reduce any kind of swelling and reduce his pain he will feel comfortable without considering being discharged from the emergency room however it is still difficult for his pain to be controlled then admitting for pain control would not be out of the question. Overall, the final plan is the same he is a outpatient follow up, he will see his PCP for physical therapy lumbar specific strengthening and flexibility training. If physical therapy fails the patient then he will work on getting pain management with his PCP, if pain management ultimately fails then a referral to spine surgery would be warranted. Patient does have surgical conditions however they are not an emergent presentation at this time. There are no barriers to discharge from a spine surgery perspective, as long as the patient is comfortable with this pain level Spine surgery information Dr Aba Patterson [phone] [place] [address], [address] [address] Call with questions Jackie Osorio [facility] Orthopaedic Spine Surgery nurse practitioner For Dr Ricky Patterson Patient was examined, chart reviewed, labs evaluated, and diagnostic studies and findings analyzed. Case was discussed with Dr. Aba Patterson who formulated the plan of care. This medical document was created using an electronic medical record system with [employer] dictation system. Although this document has been carefully reviewed, there might still be some phonetic and typographical errors. These areas are purely typographical due to imperfections of the software programs, and do not reflect any compromise in the patient's medical care. Plan discussed with Plan discussed with: Patient, Other Visit Coding Surgery Date of Service if different f: Jun 05, 2025 Billing Provider: PREM OSORIO NP Surgery Visit Codes: [id number] - INP CONSULT <55 MIN PREM OSORIO NP Jun 05, 2025 15:12
[2025-06-05] MEDS ORDERED: SACU1TAB PO (20:47)
[2025-06-05] MEDS ORDERED: CITA-77 PO (20:47)
[2025-06-05] MEDS ORDERED: METO-159 PO (20:47)
[2025-06-05] MEDS ORDERED: ASPI325T6 PO (20:48)
[2025-06-05] MEDS ORDERED: MULT-1018 PO (20:48)
[2025-06-06] VITALS (15 sets, daily range): BP systolic 152–196; BP diastolic 85–115; PULSE 78–98; RESP 18–20; TEMP 97.6–98.8; O2SAT 94–99
[2025-06-06] MEDS: hydrALAZINE HCL 20 MG/ML VL IV PRN (04:32)
[2025-06-06] MEDS: HYDROcodone-ACET 5/325MG TAB PO PRN (05:09)
[2025-06-06 07:51] LABS: Hematocrit 54.5 % (41.0-53.0); Hemoglobin 18.1 g/dL (13.5-17.5); Mean Corpuscular Hemoglobin 28.0 pg (28.0-32.0); Mean Corpuscular Volume 84.5 fL (80.0-100.0); Nucleated Red Blood Cells % 0.3 %
[2025-06-06 08:35] LABS: Chloride 104 mmol/L (98-107); Potassium 4.1 mmol/L (3.5-5.1)
[2025-06-06 08:39] LABS: Carbon Dioxide 22 mmol/L (20-31)
[2025-06-06 08:40] LABS: Calcium 9.8 mg/dL (8.7-10.4)
[2025-06-06 08:45] LABS: BUN/Creatinine Ratio 15.6 (10.0-20.0); Blood Urea Nitrogen 12 mg/dL (9-23); Glucose 96 mg/dL (74-106)
[2025-06-06 08:52] LABS: Anion Gap 11 (5-15); Sodium 137 mmol/L (136-145)
[2025-06-06] MEDS ORDERED: ALPRAZolam 0.25 MG TAB PO PRN (11:30)
[2025-06-06] MEDS ORDERED: METOPROLOL TARTRATE 50 MG TAB PO ONE (11:30)
[2025-06-06] MEDS: METOPROLOL SUCCINATE XL 50 MG TAB PO ONE (12:50)
[2025-06-06] MEDS: EMPAGLIFLOZIN 10 MG TAB PO ONE (12:51)
[2025-06-06] MEDS: CITALOPRAM HYDROBR 20 MG TAB PO ONE (12:51)
--- NOTE | 2025-06-06 13:13 | DVHPN2 ---
Progress Note - Dictate Date Seen: Jun 05, 2025 Medical Necessity Reason Pt with a Central, PICC or Fol: No Subjective PT WELL KNOWN TO ME SLEEP APNEA OBESITY HTN DIASTOLIC DYSFUNCTION SECONDARY POLYCYTHEMIA NOW WITH SEVERE LBP WITH WEAKNES MRI LUMBER SPINE Moderate lumbar degenerative disc disease. 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 Moderate spinal canal stenosis L4-5. Mild spinal canal stenosis L3-4. Multilevel neural foraminal stenosis most pronounced at L4-5 and L5-S1. T2 bright, T1 dark lesion at the L4 vertebral body measuring 12 mm. Differential considerations include atypical hemangioma, metastases, myeloma. Recommend MRI lumbar spine with contrast. Recommend continued imaging surveillance. Correlate with risk factors/clinical history. vital signs Vital Sign Date Time Temp Pulse Resp B/P (MAP) Pulse Ox O2 Delivery O2 Flow Rate FiO2 06/06/25 12:50 95 164/88 06/06/25 09:00 98.2 20 97 98.2 06/06/25 07:35 Room Air 0.0 06/06/25 07:35 21 Total Intake and Output 06/05/25 06/05/25 06/06/25 15:00 23:00 07:00 Intake Total 400 ml Balance 400 ml medications Current Medications Medications Dose Ordered Sig/Alma Route Start Time Stop Time Status Last Admin Dose Admin Ondansetron HCl 4 mg Q4HP PRN IV 06/04/25 12:30 06/04/25 23:36 4 MG Enoxaparin Sodium 40 mg DAILY SC 06/05/25 10:00 06/06/25 09:58 40 MG Acetaminophen 650 mg Q6HP PRN PO 06/04/25 12:30 Morphine Sulfate 2 mg Q4HPRN PRN IV 06/04/25 12:30 Nitroglycerin 0.4 mg Q5MINP PRN SL 06/04/25 12:30 Morphine Sulfate 2 mg Q30M PRN IV 06/04/25 12:30 06/04/25 23:36 2 MG Hydralazine HCl 10 mg Q6HP PRN IV 06/05/25 12:15 06/06/25 04:32 10 MG Acetaminophen/ Hydrocodone Bitart 2 tab Q4HP PRN PO 06/05/25 16:30 06/06/25 05:09 2 TAB Furosemide 40 mg BIDD IV 06/06/25 18:00 Sacubitril/ Valsartan 1 tab BID PO 06/06/25 22:00 UNV Aspirin 81 mg DAILY PO 06/07/25 10:00 Alprazolam 0.25 mg Q8HP PRN PO 06/06/25 11:30 Citalopram Hydrobromide 20 mg DAILY PO 06/07/25 10:00 Baclofen 10 mg TID PO 06/06/25 14:00 Empaglifozin 25 mg DAILY PO 06/07/25 10:00 Metoprolol Succinate 50 mg DAILY PO 06/07/25 10:00 Sacubitril/ Valsartan 2 tab BID PO 06/06/25 22:00 laboratory and microbiology Laboratory Tests 06/06/25 06:46 Test 06/06/25 06:46 Range/Units Serum Glucose 96 74-106 mg/dL Problem List SLEEP APNEA OBESITY HTN DIASTOLIC DYSFUNCTION SECONDARY POLYCYTHEMIA NOW WITH SEVERE LBP WITH WEAKNES MRI LUMBER SPINE Moderate lumbar degenerative disc disease. 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 Moderate spinal canal stenosis L4-5. Mild spinal canal stenosis L3-4. Multilevel neural foraminal stenosis most pronounced at L4-5 and L5-S1. T2 bright, T1 dark lesion at the L4 vertebral body measuring 12 mm. Differential considerations include atypical hemangioma, metastases, myeloma. Recommend MRI lumbar spine with contrast. Recommend continued imaging surveillance. Correlate with risk factors/clinical history. Assessment/Plan MRI WITH CONTRAST PT Plan discussed with: Patient SHANTE CHAVES MD Jun 06, 2025 13:13
[2025-06-06] MEDS: BACLOFEN 10 MG TAB PO SCH (13:56)
[2025-06-06] MEDS ORDERED: GADOTERATE MEG 10 MMOL/20ml INJ (0.5MMOL/ml) IV ONE (15:34)
--- NOTE | 2025-06-06 15:57 | ECG ---
[facility] Test Date: 2025-06-04 Test Time: 23:31:32 Pat Name: CLARI VAUGHAN Department: Room: 0286T A Gender: M Cardiology Clinical Consultant: JOSE : [id number] Requested By: CHEVY ALVARADO Order Number: [id number] Reading MD: Bennett Ralph Measurements Intervals Stem Rate: 90 P: 86 FL: 170 QRS: -31 QRSD: 106 T: 186 QT: 381 QTc: 467 Interpretive Statements Sinus rhythm Probable left atrial enlargement LVH with secondary repolarization abnormality Anterior Q waves, possibly due to LVH Electronically Signed On 06-06-2025 16:38:14 PDT by Bennett Ralph Please click the below link to view image of tracing.
--- NOTE | 2025-06-06 16:10 | DVHPN2 ---
Reviewed: H&P Changes from previous H/P or p: No Changes General: Per HPI Musculoskeletal: other (Numbness and tingling down left leg), back pain, leg pain Objective Vitals Vital Signs Date Time Temp Pulse Resp B/P (MAP) Pulse Ox O2 Delivery O2 Flow Rate FiO2 06/06/25 13:00 98.7 90 20 164/85 (111) 96 98.7 06/06/25 08:00 Room Air* 0 21 Intake/Output Intake and Output 06/06/25 07:00 Intake Total 400 ml Balance 400 ml Intake Oral 400 ml # Voids 1 Exam General Appearance: Alert, Oriented X3, Cooperative, No acute distress HEENT: Atraumatic, PERRLA, Mucous membr. moist/pink Respiratory: Clear to auscultation, Normal air movement Cardiovascular: Normal S1, Normal S2, No murmurs Abdominal: Normal bowel sounds, Soft, No tenderness, No hepatospenomegaly, No masses Extremities: No clubbing, No cyanosis, No edema, Normal pulses, No tenderness/swelling Skin: No rashes, No breakdown Neuro: Normal speech, Normal tone, Cranial nerves 3-12 NL Psych/Mental Status: Mental status NL, Mood NL Medications Current Medications Medications Dose Ordered Sig/[place] Route Start Time Stop Time Status Last Admin Dose Admin Ondansetron HCl 4 mg Q4HP PRN IV 06/04/25 12:30 06/04/25 23:36 4 MG Enoxaparin Sodium 40 mg DAILY SC 06/05/25 10:00 06/06/25 09:58 40 MG Acetaminophen 650 mg Q6HP PRN PO 06/04/25 12:30 Morphine Sulfate 2 mg Q4HPRN PRN IV 06/04/25 12:30 Nitroglycerin 0.4 mg Q5MINP PRN SL 06/04/25 12:30 Morphine Sulfate 2 mg Q30M PRN IV 06/04/25 12:30 06/04/25 23:36 2 MG Hydralazine HCl 10 mg Q6HP PRN IV 06/05/25 12:15 06/06/25 04:32 10 MG Acetaminophen/ Hydrocodone Bitart 2 tab Q4HP PRN PO 06/05/25 16:30 06/06/25 05:09 2 TAB Furosemide 40 mg BIDD IV 06/06/25 18:00 Sacubitril/ Valsartan 1 tab BID PO 06/06/25 22:00 UNV Aspirin 81 mg DAILY PO 06/07/25 10:00 Alprazolam 0.25 mg Q8HP PRN PO 06/06/25 11:30 Citalopram Hydrobromide 20 mg DAILY PO 06/07/25 10:00 Baclofen 10 mg TID PO 06/06/25 14:00 06/06/25 13:56 10 MG Empaglifozin 25 mg DAILY PO 06/07/25 10:00 Metoprolol Succinate 50 mg DAILY PO 06/07/25 10:00 Sacubitril/ Valsartan 2 tab BID PO 06/06/25 22:00 Laboratory Results Laboratory Tests 06/06/25 06:46 Chemistry Test 06/06/25 06:46 Calcium Level 9.8 mg/dL (8.7-10.4) Urinalysis Test 06/04/25 09:30 Urine Color Light-yellow (Yellow) Urine Clarity Clear (Clear) Urine pH 6.5 (5.0-9.0) Urine Specific [place] 1.017 (1.001-1.035) Urine Protein Negative (Negative) Urine Ketones Negative (Negative) Urine Blood Negative /uL (Negative) Urine Nitrite Negative (Negative) Urine Bilirubin Negative (Negative) Urine Urobilinogen Normal mg/dL (Negative) Urine Leukocyte Esterase Negative /uL (Negative) Urine RBC 1 /hpf (0 - 3) Urine Microscopic WBC /HPF (0-3) Urine Squamous Epithelial Cells None seen /hpf (<5) Urine Bacteria None seen /hpf (None Seen) Urine Glucose 4+ mg/dL (Normal) H Labs and/or images reviewed: Labs reviewed by me, Image(s) reviewed by me Assessment/Plan Assessment/Plan 65-year-old male with PMHx HTN, Asthma, CHF brought in by EMS presents with a chief complaint of sciatica pain x 3 weeks with associated numbness and tingling down his left leg. 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 The patient states that prior to this incident he was ambulatory, currently he is in severe pain after standing for no more than 10 minutes. The patient reports that his symptoms progressively got worse since Thursday. It was also noted that his blood pressure was found to be elevated at 194/112 despite taking his antihypertensive medications. 06/05: Patient is today, continues having back pain. Straight leg raise negative, but has significant pain on changing angle of head of bed. Patient also has CPAP/BiPAP at home we will continue with the stay. We will also continue his CHF medications. Patient is unable to lie down flat because of CHF. We started Solu-Medrol 40 b.i.d. and baclofen 10 t.i.d.. Waiting for spinal team eval as consult placed team. 06/06: Continue pain management, improving mobility but still very restricted, we will continue home meds, consult PCP to eval med rec. Give 1 shot of Decadron 10, increase baclofen to 10 t.i.d.. PT to eval today. dx: acute sciatica, with lower extremity neuropathy and falls acute lumbar pain due to above intractable back pain due to above chronic CHF, not in exacerbation Asthma HTN plan: antispamsmodics (baclofen over flexiril) pain prn analgesics, iv formulations for severe steroids iv - decadron (prior solumedrol) continue other home medications spinal consult tele full code Plan discussed with: Patient My Orders Orders - CHEVY JACOBSON MD Procedure Category Date Status Time Hepatitis B Surface LAB 06/05/25 In Process Antigen 20:17 Hepatitis C Antibody LAB 06/05/25 In Process 20:17 Pt Request For Service PT 06/06/25 Logged 10:17 Furosemide Injection PHA 06/06/25 In Process (Lasix Injection) 18:00 Aspirin Tablet PHA 06/07/25 In Process 10:00 Alprazolam Tablet PHA 06/06/25 In Process (Xanax Tablet) 11:30 Citalopram Tablet PHA 06/07/25 In Process (Celexa Tablet) 10:00 Baclofen Tablet PHA 06/06/25 In Process (Liorisal Tablet) 14:00 *Consult Dr[address] Sprague CONS 06/06/25 Transmitted [place] 11:57 Empagliflozin PHA 06/07/25 In Process (Jardiance) 10:00 Metoprolol Xl PHA 06/07/25 In Process Succinate (Toprol Xl) 10:00 Sacubitril-Valsartan PHA 06/06/25 In Process (Entresto 24-26 Mg 22:00 Date of Service: Jun 06, 2025 Billing Provider: CHEVY JACOBSON MD Common Visit Codes: [id number] INP/OBS CARE(HIGH) CHEVY JACOBSON MD Jun 06, 2025 16:10
[2025-06-06] MEDS: FUROSEMIDE 40 MG/4 ML VIAL IV SCH (17:46)
--- NOTE | 2025-06-06 18:52 | DVH ---
PROCEDURE: MRI LUMBAR WITH CONTRAST Indication: RULE OUT METS COMPARISON: MRI lumbar spine from 06/05/2025, CT lumbar spine from 06/04/2025 TECHNIQUE: Sagittal, axial sequences of the lumbar spine are obtained with contrast. FINDINGS: The previously described L4 lesion that was T2 bright and T1 dark demonstrates avid enhancement, lenore uring approximately 13 mm. IMPRESSION: Previously described lesion at the L4 vertebral body measuring 13 mm demonstrates avid enhancement. Given the enhancement, considerations include atypical hemangioma, metastases, myeloma , other neopla stic processes. Recommend oncology consultation for further evaluation. On the previous lumbar spine CT, there is slight sclerosis in this region. Correlate for sclerotic metastases. Bone scan can als o be obtained to further evaluate. Please refer to previous MRI lumbar spine for findings of spinal canal and neural foraminal stenosis in the lumbar spine.
[2025-06-06] MEDS: SACUBITRIL-VALSARTAN 24mg/26mg TAB PO SCH (21:22)
[2025-06-06] MEDS ORDERED: SACUBITRIL-VALSARTAN 24mg/26mg TAB PO SCH ×2 (22:00)
[2025-06-06] MEDS ORDERED: METOPROLOL TARTRATE 50 MG TAB PO SCH (22:00)
[2025-06-07 01:00] VITALS: BP 177/100; PULSE 70; RESP 18; TEMP 96.8; O2SAT 98
[2025-06-07 05:00] VITALS: BP 166/92; PULSE 81; RESP 17; TEMP 97.6; O2SAT 94
[2025-06-07 07:36] LABS: Calcium 9.9 mg/dL (8.7-10.4); Chloride 101 mmol/L (98-107); Sodium 142 mmol/L (136-145)
[2025-06-07 07:37] LABS: Anion Gap 11 (5-15); Carbon Dioxide 30 mmol/L (20-31)
[2025-06-07 07:38] VITALS: BP 165/93; PULSE 79; RESP 18; TEMP 97.8; O2SAT 96
[2025-06-07 07:42] LABS: BUN/Creatinine Ratio 16.1 (10.0-20.0); Blood Urea Nitrogen 15 mg/dL (9-23); Glucose 86 mg/dL (74-106)
[2025-06-07 07:44] LABS: Potassium 3.5 mmol/L (3.5-5.1)
[2025-06-07 08:00] VITALS: PULSE 86
[2025-06-07] MEDS: METOPROLOL SUCCINATE XL 50 MG TAB PO SCH (09:25)
[2025-06-07] MEDS: EMPAGLIFLOZIN 10 MG TAB PO SCH (09:26)
[2025-06-07] MEDS: CITALOPRAM HYDROBR 20 MG TAB PO SCH (09:26)
[2025-06-07 11:29] LABS: Hepatitis B Surface Antigen Negative (Negative); Hepatitis C Antibody Negative (Negative)
[2025-06-07] MEDS ORDERED: BACL10TA PO (11:56)
[2025-06-07] MEDS ORDERED: ASPI1TAB19 PO (11:56)
--- NOTE | 2025-06-07 11:57 | DVHDS2 ---
Discharge Summary Date of Admission Jun 04, 2025 at 12:24 Date of Discharge: Jun 07, 2025 Labs/Diagnostic Data: Laboratory Results Test 06/07/25 06:51 06/06/25 06:46 06/05/25 05:50 06/05/25 05:40 Sodium Level 142 mmol/L (136-145) Potassium Level 3.5 mmol/L (3.5-5.1) Chloride Level 101 mmol/L (98-107) Carbon Dioxide Level 30 mmol/L (20-31) Anion Gap 11 (5-15) Blood Urea Nitrogen 15 mg/dL (9-23) Creatinine 0.93 mg/dL (0.700-1.30) Glomerular Filtration Rate Calc 91 mL/min (>90) BUN/Creatinine Ratio 16.1 (10.0-20.0) Serum Glucose 86 mg/dL (74-106) Calcium Level 9.9 mg/dL (8.7-10.4) White Blood Count 7.2 10^3/uL (4.4-10.8) Red Blood Count 6.45 10^6/uL (4.5-5.90) Hemoglobin 18.1 g/dL (13.5-17.5) Hematocrit 54.5 % (41.0-53.0) Mean Corpuscular Volume 84.5 fL (80.0-100.0) Mean Corpuscular Hemoglobin 28.0 pg (28.0-32.0) Mean Corpuscular Hemoglobin Concent 33.2 g/dL (32.0-36.0) Red Cell Distribution Width 16.5 % (11.8-14.3) Platelet Count 345 10^3/uL (140-450) Mean Platelet Volume 8.1 fL (6.9-10.8) Neutrophils (%) (Auto) 74.2 % (37.0-80.0) Lymphocytes (%) (Auto) 18.8 % (10.0-50.0) Monocytes (%) (Auto) 6.7 % (0.0-12.0) Eosinophils (%) (Auto) 0.0 % (0.0-7.0) Basophils (%) (Auto) 0.3 % (0.0-2.0) Neutrophils # (Auto) 5.4 10 ^3/uL (1.6-8.6) Lymphocytes # (Auto) 1.4 10 ^3/uL (0.4-5.4) Monocytes # (Auto) 0.5 10 ^3/uL (0-1.3) Eosinophils # (Auto) 0 10 ^3/uL (0-0.8) Basophils # (Auto) 0 10 ^3/uL (0-0.2) Nucleated Red Blood Cells 0.3 % Total Bilirubin 1.3 mg/dL (0.2-1.0) Aspartate Amino Transferase (AST) 43 U/L (13-40) Alanine Aminotransferase (ALT) 32 U/L (7-40) Alkaline Phosphatase 61 U/L (46-116) Total Protein 7.1 g/dL (5.7-8.2) Albumin 4.0 g/dL (3.2-4.8) Hepatitis B Surface Antigen Negative (Negative) Hepatitis C Antibody Negative (Negative) Test 06/04/25 21:35 06/04/25 11:44 06/04/25 09:30 Troponin I High Sensitivity 84 ng/L (</=54) Prothrombin Time 11.4 sec (9.3-11.8) Prothrombin Time INR 1.08 (0.9-1.15) Urine Color Light-yellow (Yellow) Urine Clarity Clear (Clear) Urine pH 6.5 (5.0-9.0) Urine Specific [place] 1.017 (1.001-1.035) Urine Protein Negative (Negative) Urine Ketones Negative (Negative) Urine Blood Negative /uL (Negative) Urine Nitrite Negative (Negative) Urine Bilirubin Negative (Negative) Urine Urobilinogen Normal mg/dL (Negative) Urine Leukocyte Esterase Negative /uL (Negative) Urine RBC 1 /hpf (0 - 3) Urine Microscopic WBC /HPF (0-3) Urine Squamous Epithelial Cells None seen /hpf (<5) Urine Bacteria None seen /hpf (None Seen) Urine Glucose 4+ mg/dL (Normal) Other Laboratory Tests 06/07/25 06:51 06/06/25 06:46 Brief Hx & Hospital Course: 65-year-old male with PMHx HTN, Asthma, CHF brought in by EMS presents with a chief complaint of sciatica pain x 3 weeks with associated numbness and tingling down his left leg. 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 The patient states that prior to this incident he was ambulatory, currently he is in severe pain after standing for no more than 10 minutes. The patient reports that his symptoms progressively got worse since Thursday. It was also noted that his blood pressure was found to be elevated at 194/112 despite taking his antihypertensive medications. 06/05: Patient is today, continues having back pain. Straight leg raise negative, but has significant pain on changing angle of head of bed. Patient also has CPAP/BiPAP at home we will continue with the stay. We will also continue his CHF medications. Patient is unable to lie down flat because of CHF. We started Solu-Medrol 40 b.i.d. and baclofen 10 t.i.d.. Waiting for spinal team rhys as consult placed team. 06/06: Continue pain management, improving mobility but still very restricted, we will continue home meds, consult PCP to eval med rec. Give 1 shot of Decadron 10, increase baclofen to 10 t.i.d.. PT to ildefonsoal today. 06/07: Patient improved mobility, discussed exercises with PT., patient is stable for discharge as per plan below. dx: acute sciatica, with lower extremity neuropathy and falls acute lumbar pain due to above intractable back pain due to above chronic CHF, not in exacerbation Asthma HTN Plan: -Take baclofen 10 mg twice daily for 7 days -Change aspirin 325 to aspirin 81 mg daily -Follow up with PCP -PCP to consider referral to spinal ortho Condition at Discharge: Fair Final Diagnosis/Problems List acute sciatica, with lower extremity neuropathy and falls acute lumbar pain due to above intractable back pain due to above chronic CHF, not in exacerbation Asthma HTN Discharge Disposition: Home Discharge Instruct/Medications Scheduled Alprazolam (Alprazolam), 1 TAB PO BID PRN, (Reported) Aspirin (Aspirin), 325 MG PO DAILY, (Reported) Atorvastatin Calcium (Atorvastatin Calcium), 1 TAB PO DAILY, (Reported) Citalopram Hydrobromide (Citalopram Hydrobromide), 1 TAB PO DAILY, (Reported) Citalopram Hydrobromide (Citalopram Hydrobromide), 20 MG PO DAILY, (Reported) Empagliflozin (Jardiance), 1 TAB PO QAM, (Reported) Ergocalciferol (Vitamin D), 1 CAP PO QWEEKLY, (Reported) Furosemide (Furosemide), 1 TAB PO DAILY, (Reported) Hydralazine Hcl (Hydralazine Hcl), 1 TAB PO BID, (Reported) Losartan Potassium (Losartan Potassium), 1 TAB PO DAILY, (Reported) Metoprolol Succinate (Metoprolol Succinate Er), 1 TAB PO DAILY, (Reported) Metoprolol Tartrate (Metoprolol Tartrate), 100 MG PO DAILY, (Reported) Multiple Vitamin (Multivitamins), 1 TAB PO DAILY, (Reported) Potassium Chloride (Klor-Con M20), 1 TAB PO DAILY, (Reported) Sacubitril-Valsartan (Entresto 49-51 mg), 1 TAB PO BID, (Reported) Sacubitril-Valsartan (Entresto 24-26 mg), 1 TAB PO BID, (Reported) Sildenafil Citrate (Sildenafil Citrate), 1 TAB PO PRN, (Reported) Discharge Statement: "Patient was advised to return to the ER or call 911 if any headaches, dizziness, shortness of breath, chest pain, abdominal pain, bleeding, fevers, or worsening of medical condition. Patient was counseled about treatment plan, medications, possible side effects, patientverbalized understanding. All questions were answered to the best of my ability. This discharge took greater then 30 minutes in planning, reviewing documentation, counseling the patient, and discussing with other team members." ASSESSMENT ASSESSMENT Assessment Date of Service: Jun 07, 2025 Billing Provider: CHEVY JACOBSON MD Common Visit Codes: [id number] DISCH DAY >30min CHEVY JACOBSON MD Jun 07, 2025 11:57
[2025-06-07 13:00] VITALS: BP 147/70; PULSE 98; RESP 20; TEMP 97.6; O2SAT 95
[2025-06-07] MEDS: MORPHINE SULFATE INJ 2 MG/ml SYRG IV PRN (13:23)
--- NOTE | 2025-06-07 13:30 | DVHPN2 ---
Progress Note - Dictate Date Seen: Jun 07, 2025 Medical Necessity Reason Pt with a Central, PICC or Fol: No Subjective PT WELL KNOWN TO ME SLEEP APNEA OBESITY HTN DIASTOLIC DYSFUNCTION SECONDARY POLYCYTHEMIA NOW WITH SEVERE LBP WITH WEAKNES MRI LUMBER SPINE Moderate lumbar degenerative disc disease. 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 Moderate spinal canal stenosis L4-5. Mild spinal canal stenosis L3-4. Multilevel neural foraminal stenosis most pronounced at L4-5 and L5-S1. T2 bright, T1 dark lesion at the L4 vertebral body measuring 12 mm. Differential considerations include atypical hemangioma, metastases, myeloma. Recommend MRI lumbar spine with contrast. Recommend continued imaging surveillance. Correlate with risk factors/clinical history. vital signs Vital Sign Date Time Temp Pulse Resp B/P (MAP) Pulse Ox O2 Delivery O2 Flow Rate FiO2 06/07/25 13:23 98 18 162/86 06/07/25 08:00 Room Air* 0 21 06/07/25 07:38 97.8 96 97.8 Total Intake and Output 06/06/25 06/06/25 06/07/25 15:00 23:00 07:00 Intake Total 850 ml 400 ml 1200 ml Output Total 850 ml Balance 850 ml 400 ml 350 ml medications Current Medications Medications Dose Ordered Sig/[place] Route Start Time Stop Time Status Last Admin Dose Admin Ondansetron HCl 4 mg Q4HP PRN IV 06/04/25 12:30 06/04/25 23:36 4 MG Enoxaparin Sodium 40 mg DAILY SC 06/05/25 10:00 06/07/25 09:24 40 MG Acetaminophen 650 mg Q6HP PRN PO 06/04/25 12:30 Morphine Sulfate 2 mg Q4HPRN PRN IV 06/04/25 12:30 06/07/25 13:23 2 MG Nitroglycerin 0.4 mg Q5MINP PRN SL 06/04/25 12:30 Morphine Sulfate 2 mg Q30M PRN IV 06/04/25 12:30 06/04/25 23:36 2 MG Hydralazine HCl 10 mg Q6HP PRN IV 06/05/25 12:15 06/07/25 10:49 10 MG Acetaminophen/ Hydrocodone Bitart 2 tab Q4HP PRN PO 06/05/25 16:30 06/07/25 11:21 2 TAB Furosemide 40 mg BIDD IV 06/06/25 18:00 06/07/25 05:19 40 MG Sacubitril/ Valsartan 1 tab BID PO 06/06/25 22:00 UNV Aspirin 81 mg DAILY PO 06/07/25 10:00 06/07/25 09:26 81 MG Alprazolam 0.25 mg Q8HP PRN PO 06/06/25 11:30 Citalopram Hydrobromide 20 mg DAILY PO 06/07/25 10:00 06/07/25 09:26 20 MG Baclofen 10 mg TID PO 06/06/25 14:00 06/07/25 13:22 10 MG Empaglifozin 25 mg DAILY PO 06/07/25 10:00 06/07/25 09:26 25 MG Metoprolol Succinate 50 mg DAILY PO 06/07/25 10:00 06/07/25 09:25 50 MG Sacubitril/ Valsartan 2 tab BID PO 06/06/25 22:00 06/07/25 09:24 2 TAB laboratory and microbiology Laboratory Tests 06/07/25 06:51 06/06/25 06:46 Test 06/07/25 06:51 Range/Units Serum Glucose 86 74-106 mg/dL Problem List SLEEP APNEA OBESITY HTN DIASTOLIC DYSFUNCTION SECONDARY POLYCYTHEMIA NOW WITH SEVERE LBP WITH WEAKNES MRI LUMBER SPINE Moderate lumbar degenerative disc disease. 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 Moderate spinal canal stenosis L4-5. Mild spinal canal stenosis L3-4. Multilevel neural foraminal stenosis most pronounced at L4-5 and L5-S1. T2 bright, T1 dark lesion at the L4 vertebral body measuring 12 mm. Differential considerations include atypical hemangioma, metastases, myeloma. Recommend MRI lumbar spine with contrast. Recommend continued imaging surveillance. Correlate with risk factors/clinical history. Assessment/Plan MRI WITH CONTRAST PT Plan discussed with: Patient SHANTE CHAVES MD Jun 07, 2025 13:30
--- NOTE | 2025-06-07 13:33 | DVHPN2 ---
Progress Note - Dictate Date Seen: Jun 07, 2025 Medical Necessity Reason Pt with a Central, PICC or Fol: No Subjective PT WELL KNOWN TO ME SLEEP APNEA OBESITY HTN DIASTOLIC DYSFUNCTION SECONDARY POLYCYTHEMIA NOW WITH SEVERE LBP WITH WEAKNES MRI LUMBER SPINE Moderate lumbar degenerative disc disease. 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 Moderate spinal canal stenosis L4-5. Mild spinal canal stenosis L3-4. Multilevel neural foraminal stenosis most pronounced at L4-5 and L5-S1. T2 bright, T1 dark lesion at the L4 vertebral body measuring 12 mm. Differential considerations include atypical hemangioma, metastases, myeloma. Recommend MRI lumbar spine with contrast. Recommend continued imaging surveillance. Correlate with risk factors/clinical history. vital signs Vital Sign Date Time Temp Pulse Resp B/P (MAP) Pulse Ox O2 Delivery O2 Flow Rate FiO2 06/07/25 13:23 98 18 162/86 06/07/25 08:00 Room Air* 0 21 06/07/25 07:38 97.8 96 97.8 Total Intake and Output 06/06/25 06/06/25 06/07/25 15:00 23:00 07:00 Intake Total 850 ml 400 ml 1200 ml Output Total 850 ml Balance 850 ml 400 ml 350 ml medications Current Medications Medications Dose Ordered Sig/[place] Route Start Time Stop Time Status Last Admin Dose Admin Ondansetron HCl 4 mg Q4HP PRN IV 06/04/25 12:30 06/04/25 23:36 4 MG Enoxaparin Sodium 40 mg DAILY SC 06/05/25 10:00 06/07/25 09:24 40 MG Acetaminophen 650 mg Q6HP PRN PO 06/04/25 12:30 Morphine Sulfate 2 mg Q4HPRN PRN IV 06/04/25 12:30 06/07/25 13:23 2 MG Nitroglycerin 0.4 mg Q5MINP PRN SL 06/04/25 12:30 Morphine Sulfate 2 mg Q30M PRN IV 06/04/25 12:30 06/04/25 23:36 2 MG Hydralazine HCl 10 mg Q6HP PRN IV 06/05/25 12:15 06/07/25 10:49 10 MG Acetaminophen/ Hydrocodone Bitart 2 tab Q4HP PRN PO 06/05/25 16:30 06/07/25 11:21 2 TAB Furosemide 40 mg BIDD IV 06/06/25 18:00 06/07/25 05:19 40 MG Sacubitril/ Valsartan 1 tab BID PO 06/06/25 22:00 UNV Aspirin 81 mg DAILY PO 06/07/25 10:00 06/07/25 09:26 81 MG Alprazolam 0.25 mg Q8HP PRN PO 06/06/25 11:30 Citalopram Hydrobromide 20 mg DAILY PO 06/07/25 10:00 06/07/25 09:26 20 MG Baclofen 10 mg TID PO 06/06/25 14:00 06/07/25 13:22 10 MG Empaglifozin 25 mg DAILY PO 06/07/25 10:00 06/07/25 09:26 25 MG Metoprolol Succinate 50 mg DAILY PO 06/07/25 10:00 06/07/25 09:25 50 MG Sacubitril/ Valsartan 2 tab BID PO 06/06/25 22:00 06/07/25 09:24 2 TAB laboratory and microbiology Laboratory Tests 06/07/25 06:51 06/06/25 06:46 Test 06/07/25 06:51 Range/Units Serum Glucose 86 74-106 mg/dL Problem List SLEEP APNEA OBESITY HTN DIASTOLIC DYSFUNCTION SECONDARY POLYCYTHEMIA NOW WITH SEVERE LBP WITH WEAKNES MRI LUMBER SPINE Moderate lumbar degenerative disc disease. 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 Moderate spinal canal stenosis L4-5. Mild spinal canal stenosis L3-4. Multilevel neural foraminal stenosis most pronounced at L4-5 and L5-S1. T2 bright, T1 dark lesion at the L4 vertebral body measuring 12 mm. Differential considerations include atypical hemangioma, metastases, myeloma. Recommend MRI lumbar spine with contrast. Recommend continued imaging surveillance. Correlate with risk factors/clinical history. Assessment/Plan MRI WITH CONTRAST Previously described lesion at the L4 vertebral body measuring 13 mm demonstrates avid enhancement. Given the enhancement, considerations include atypical hemangioma, metastases, myeloma , other neoplastic processes. Recommend oncology consultation for further evaluation. On the previous lumbar spine CT, there is slight sclerosis in this region. Correlate for sclerotic metastases. Bone scan can also be obtained to further evaluate. MRI WITH CONTRAST HAS ADDED NO BENEFIT IN THE DIFFERENTIAL DIAGNOSIS STILL COULD BE METS CONSIDER BONE SCAN PT Plan discussed with: Patient SHANTE CHAVES MD Jun 07, 2025 13:33
[2025-06-07 14:01] VITALS: BP 144/86; PULSE 85; RESP 17
== END 2025-06-07 16:03 | disposition home or self-care (01) | DRG 551 ==
LOC: EDBD 09:20 → ER 09:20 → OVERFLOW 12:24 → TELE-WESTW 06-05 23:00
PROVIDERS: ADMIT Student in an Organized Health Care Education/Training Program; ATTEND Student in an Organized Health Care Education/Training Program
PROC: 5A09357 Assistance with Respiratory Ventilation, Less than 24 Consecutive Hours, Continuous Positive Airway Pressure (ICD-10-PCS; 2025-06-05)
PROC: 5A09357 Assistance with Respiratory Ventilation, Less than 24 Consecutive Hours, Continuous Positive Airway Pressure (ICD-10-PCS; principal; 2025-06-06)
DX: M54.32 Sciatica, left side (principal); I21.A1 Myocardial infarction type 2; M48.062 Spinal stenosis, lumbar region with neurogenic claudication; I50.9 Heart failure, unspecified; I11.0 Hypertensive heart disease with heart failure; M51.369 Other intervertebral disc degeneration, lumbar region without mention of lumbar back pain or lower extremity pain; J45.909 Unspecified asthma, uncomplicated; M47.816 Spondylosis without myelopathy or radiculopathy, lumbar region; M51.362 Other intervertebral disc degeneration, lumbar region with discogenic back pain and lower extremity pain; Z79.899 Other long term (current) drug therapy
CPT/HCPCS: 36415; 71045; 72131; 72148; 72158; 80048; 80053; 81001; 84484; 85025; 85610; 86803; 86850; 86900; 86901; 87340; 93005; 94660; 96374; 96375; 97110; 97116; 97163; G0378; J1100; J1885; J2405; J7060